=== PATIENT | female | born 1990 | race Asian ===

== ENCOUNTER 2019-03-24 14:20 | Inpatient (IN) | payer MEDICAID ==
[~2019-03-24] VITALS: Ht 165.1 cm; Wt 58.1 kg
[2019-03-24 14:33] VITALS: BP 95/59
--- NOTE | 2019-03-24 14:39 | NUR ---
Patient ambulated to bed 3 with family. RN evaluating patient at bedside.
--- NOTE | 2019-03-24 14:50 | NUR ---
PATIENT BIB SIGNIFICANT OTHER, AMBULATORY, C/O LOWER ABDOMINAL PAIN THAT RADIATES TO THE RIGHT FLANK AND LOWER BACK SINCE YESTERDAY, C/O 7/10 PAIN. PATIENT REPORTED N/V X4, NO DIARRHEA. PATIENT NO MEDICATION AND NO MEDICAL HX. RR EVEN AND UNLABORED, BED IN LOWEST POSITION, ED MD DR. SALDANA MADE AWARE, WILL CONTINUE TO MONITOR CLOSELY.
--- NOTE | 2019-03-24 15:45 | NUR ---
PATIENT PICKED UP BY TECH FOR CT AT THIS TIME
[2019-03-24 15:51] LABS: APPEARANCE,URINE SL CLOUDY (CLEAR); BILIRUBIN,URINE NEGATIVE (NEGATIVE); BLOOD, URINE 3+ (NEGATIVE); COLOR,URINE YELLOW (YELLOW); LEUKOCYTE ESTERASE ,URINE 3+ (NEGATIVE); NITRITE, URINE POSITIVE (NEGATIVE); UGLUCOSE NEGATIVE (NEGATIVE)
[2019-03-24 15:52] LABS: BASOPHILS % (AUTO) 0.3 % (0.0-2.0); EOSINOPHILS # (AUTO) 0.1 K/uL (0-0.4); EOSINOPHILS % (AUTO) 0.9 % (0.0-4.0); HEMATOCRIT 40.6 % (36-48); HEMOGLOBIN 13.4 g/dL (12.0-16.0); LYMPHOCYTES # (AUTO) 1.3 K/uL (2.5-16.5); LYMPHOCYTES % (AUTO) 9.6 % (20.5-51.1); MEAN CORPUSCULAR HEMOGLOBIN 30 pg (27-31); MEAN CORPUSCULAR HGB CONC 33 g/dL (33-37); MEAN CORPUSCULAR VOLUME 91.8 fL (80-94); MONOCYTES # (AUTO) 0.9 K/uL (0.8-1.0); MONOCYTES % (AUTO) 6.1 % (1.7-9.3); NEUTROPHILS # (AUTO) 11.7 K/uL (1.8-7.7); NEUTROPHILS % (AUTO) 83.1 % (42.2-75.2); PLATELET COUNT (AUTO) 247 K/uL (140-450); RED BLOOD CELL COUNT(AUTO) 4.43 MIL/uL (4.20-5.40); WHITE BLOOD COUNT (AUTO) 14.1 K/uL (4.8-10.8)
--- NOTE | 2019-03-24 15:53 | NUR ---
PATIENT RETURNED FROM CT
[2019-03-24 16:07] LABS: RBC,URINE TOO NUMEROUS TO COUN /HPF (0-5); WBC,URINE TOO MANY TO COUNT /HPF (0-5)
[2019-03-24 16:10] LABS: ANION GAP 13.3 (8-16); CARBON DIOXIDE 25.2 mmol/L (21-32); CREATININE 0.7 mg/dL (0.6-1.3); POTASSIUM 3.5 mmol/L (3.5-5.1)
[2019-03-24 16:12] LABS: ALBUMIN 3.9 g/dL (3.4-5.0); TOTAL BILIRUBIN 0.5 mg/dL (0.0-1.0)
[2019-03-24] MEDS ORDERED: KETOROLAC 30 MG/ML VIAL IVP ONE (16:35)
[2019-03-24] MEDS ORDERED: cefTRIAXone 2,000 MG in DEXTROSE 5% 100 ML IV ONE (16:35)
[2019-03-24] MEDS ORDERED: cefTRIAXone 2,000 MG VIAL ONE (16:52)
--- NOTE | 2019-03-24 18:10 | NUR ---
PATIENT TRANSPORTED TO [facility] UN[facility] VIA WHEELCHAIR IN ROOM 105B, PATIENT AMBULATED FROM WHEELCHAIR TO BED IN STABLE CONDITION, VSS IN NO ACUTE RESPIRATORY DISTRESS. BEDSIDE REPORT GIVEN TO VENU ROBB.
--- NOTE | 2019-03-24 18:17 | NUR ---
Admitted from ER , with chief complaint of BACK PAIN , 28 y/o ,Female, AAOX4, NO S/S OF ACUTE DISTRESS. PT DENIES PAIN. IV SITE PATENT AND INTACT. PT ,oriented to call light, bed, phone,television, bathroom, smoking policy, visiting hours, procedures, ID bracelet on. Belongings list checked.CALL LIGHT WITHIN REACH. SAFETY MEASURES ENSURED. WILL CONTINUE TO MONITOR.
[2019-03-24] MEDS ORDERED: NACL 0.9% 1,000 ML IV SCH (18:24)
[2019-03-24] MEDS ORDERED: HYDROcodone/APAP 5/325 MG 1 TAB TAB PO PRN (18:25)
[2019-03-24] MEDS ORDERED: ACETAMINOPHEN 325 MG TAB PO PRN (18:25)
[2019-03-24] MEDS ORDERED: MORPHINE SULFATE 2 MG/ML SYR IVP PRN (18:25)
[2019-03-24] MEDS ORDERED: ONDANSETRON 4 MG/2 ML VIAL IM/IVP PRN (18:25)
[2019-03-24 18:27] VITALS: BP 128/78
[2019-03-24 19:10] LABS: BARBITURATE, URINE NEG. ng/ml (NEG <=200); BENZODIAZEPINE, URINE NEG. ng/mL (NEG <=200); CANNABINOID, URINE NEG. ng/mL (NEG <=50); COCAINE, URINE NEG. ng/mL (NEG <=300); OPIATE, URINE NEG. ng/mL (NEG <=2000); PHENCYCLIDINE SCREEN,URINE NEG. ng/mL (NEG <=25)
[2019-03-24 19:10] LABS: PROTHROMBIN TIME 9.8 secs (10.8-13.4)
[2019-03-24 19:20] LABS: MAGNESIUM 1.9 mg/dL (1.8-2.4); THYROID STIMULATING HORMONE 0.67 uIU/mL (0.34-3.74)
--- NOTE | 2019-03-24 19:20 | NUR ---
PATIENT STATES SHE WANTS TO LEAVE AM. AT BEDSIDE. RISKS EXPLAINED. PT VERBALIZED UNDERSTANDING STATING SHE WOULD GET TREATMENT IN [place]. IV TAKEN OUT TIP INTACT. PT AMBULATED TO LOBBY. PRESCRIPTION PROVIDED.
[2019-03-24] MEDS ORDERED: SULF-58 PO (21:40)
== END 2019-03-24 19:15 | disposition left against medical advice (07) | DRG 463 ==
LOC: MED 14:20 → MTU 17:44
PROVIDERS: ADMIT Family Medicine; ATTEND Family Medicine
DX: N12 Tubulo-interstitial nephritis, not specified as acute or chronic (principal); Z53.21 Procedure and treatment not carried out due to patient leaving prior to being seen by health care provider
CPT/HCPCS: 36415; 80053; 80305; 81001; 81025; 83735; 84100; 84443; 85025; 85610; 85730; 87086; 87186; 96365; 96375; 99285; J0696; J1885

== ENCOUNTER 2019-06-25 23:27 | Emergency (ER) | payer SELFPAY ==
[~2019-06-25 23:27] MED LIST: SULF-58 PO
--- NOTE | 2019-06-25 23:41 | NUR ---
PT CALLED FROM LOBBY; NO RESPONSE. CALLED OUTSIDE; NO RESPONSE.
--- NOTE | 2019-06-25 23:59 | NUR ---
CALLED FROM LOBBY; NO RESPONSE.
--- NOTE | 2019-06-26 00:18 | NUR ---
CALLED FROM LOBBY. NO RESPONSE. LEFT WITHOUT BEING TRIAGED.
== END 2019-06-25 23:41 | disposition left against medical advice (07) ==
LOC: MED 23:27
DX: R50.9 Fever, unspecified (principal); Z53.21 Procedure and treatment not carried out due to patient leaving prior to being seen by health care provider

== ENCOUNTER 2019-06-26 18:03 | Emergency (ER) | payer OTHER ==
[~2019-06-26] VITALS: Ht 160 cm; Wt 62.6 kg
--- NOTE | 2019-06-26 18:17 | NUR ---
PT AMBULATED TO ER BED 05
[2019-06-26 18:18] VITALS: BP 130/66
--- NOTE | 2019-06-26 18:31 | NUR ---
PT C/O FEVER WITH THROBBING TEMPORAL DENTON, CHILLS, AND SWEATINGS FOR 2 DAYS. PT ALSO HAS WATERY DIARRHEA X1 AND NAUSEA TODAY. DENIES COUGH OR VOMITING. PATIENT STATES PAIN OF 7/10 AT THIS TIME; VSS; PATIENT POSITIONED FOR COMFORT; HOB ELEVATED; BEDRAILS UP X1; BED DOWN. ER MD MADE AWARE OF PT STATUS.
[2019-06-26] MEDS ORDERED: ACETAMINOPHEN 325 MG TAB PO ONE (18:35)
--- NOTE | 2019-06-26 19:09 | NUR ---
ICE PACK PROVIDED TO PT.
--- NOTE | 2019-06-26 19:13 | NUR ---
Pt report given to VENU Hope. Transfer of care at this time.
[2019-06-26] MEDS ORDERED: NACL 0.9% 1,000 ML IV ONE (20:00)
[2019-06-26] MEDS ORDERED: cefTRIAXone 1,000 MG VIAL ONE (20:05)
[2019-06-26 20:55] VITALS: BP 128/64
--- NOTE | 2019-06-26 20:55 | NUR ---
PT DISCHARGED WITH PAPERWORK. RX KEFLEX. EDUCATED PT REGARDING MEDICATION AND S/E. EDUCATED PT REGARDING D/C DIAGNOSIS AND INSTRUCTIONS. PT VERBALIZED UNDERSTANDING OF TEACHING. TOLD PT TO FOLLOW UP WITH PCP AND WHEN TO RETURN TO ED. PT VSS. TEMPERATURE 99.0 ORAL. ALL QUESTIONS ANSWERED.
== END 2019-06-26 20:55 | disposition home or self-care (01) ==
LOC: MED 18:03
DX: N39.0 Urinary tract infection, site not specified (principal); Z79.2 Long term (current) use of antibiotics
CPT/HCPCS: 81002; 81025; 87804; 96365; 99283; J0696; J7030

== ENCOUNTER 2019-06-27 15:41 | Inpatient (IN) | payer OTHER ==
[~2019-06-27] VITALS: Ht 160 cm; Wt 63.5 kg
[2019-06-27 15:54] VITALS: BP 108/74
--- NOTE | 2019-06-27 16:03 | NUR ---
NOTIFIED DR. ZELAYA PT HAS SUSPECTED SEPSIS. ASSISTED PT TO WAIT IN THE LOBBY DUE TO UNAVAILABLE BED AT THIS TIME.
--- NOTE | 2019-06-27 16:16 | NUR ---
PT TAKEN TO BED 8.
[2019-06-27] MEDS ORDERED: ACETAMINOPHEN 325 MG TAB PO ONE (16:20)
[2019-06-27] MEDS ORDERED: IBUPROFEN 600 MG TAB PO ONE (16:20)
--- NOTE | 2019-06-27 16:26 | NUR ---
28/F C/O FEVER, CHILLS, DENTON, DIZZINESS, FATIGUE/WEAKNESS, LOSS OF APPETITE FOR 3 DAYS. DIARRHEA X1 YESTERDAY. DENIES N/V. PT WAS RELEASED FROM ER HERE LAST NIGHT, DX OF UTI AND RX OF KEFLEX. TOOK TYLENOL IN THE MORNING BUT FEVER CAME BACK. INITIATED COOLING MEASURES. AOX4, GCS15. PT APPEARS FATIGUED. PHM: DENIES
[2019-06-27] MEDS ORDERED: NACL 0.9% 2,000 ML IV SCH (16:34)
[2019-06-27] MEDS ORDERED: DEXAMETHASONE 10 MG/ML VIAL IVP ONE (16:35)
[2019-06-27] MEDS ORDERED: CLINDAMYCIN 900 MG in DEXTROSE 5% 100 ML IV ONE (16:35)
[2019-06-27] MEDS ORDERED: LORazepam 2 MG/ML VIAL IVP ONE (16:35)
[2019-06-27] MEDS ORDERED: LEVOFLOXACIN 500 MG/D5W PREMIX 100 ML IV ONE (16:35)
--- NOTE | 2019-06-27 16:46 | NUR ---
XRAY AT BEDSIDE
--- NOTE | 2019-06-27 16:53 | NUR ---
+LEFT CVA TENDERNESS
--- NOTE | 2019-06-27 16:55 | NUR ---
INDUSTRIAL HYGENIST AT BEDSIDE.
[2019-06-27] MEDS ORDERED: CLINDAMYCIN 900 MG/6 ML VIAL IV ONE (17:17)
[2019-06-27 17:23] LABS: BASOPHILS # (AUTO) 0.1 K/uL (0.00-0.22); BASOPHILS % (AUTO) 0.3 % (0.0-2.0); HEMATOCRIT 37.1 % (36-48); HEMOGLOBIN 12.3 g/dL (12.0-16.0); LYMPHOCYTES % (AUTO) 5.7 % (20.5-51.1); MEAN CORPUSCULAR HEMOGLOBIN 30 pg (27-31); MEAN CORPUSCULAR HGB CONC 33 g/dL (33-37); MEAN CORPUSCULAR VOLUME 91.3 fL (80-94); MONOCYTES # (AUTO) 1.7 K/uL (0.8-1.0); MONOCYTES % (AUTO) 10.2 % (1.7-9.3); NEUTROPHILS # (AUTO) 14.1 K/uL (1.8-7.7); NEUTROPHILS % (AUTO) 83.8 % (42.2-75.2); PLATELET COUNT (AUTO) 205 K/uL (140-450); RED BLOOD CELL COUNT(AUTO) 4.06 MIL/uL (4.20-5.40); RED CELL DISTRIBUTION WIDTH 12.9 % (11.6-13.7); WHITE BLOOD COUNT (AUTO) 16.9 K/uL (4.8-10.8)
[2019-06-27 17:49] LABS: ALBUMIN 3.1 g/dL (3.4-5.0); ANION GAP 19.4 (8-16); CARBON DIOXIDE 17.8 mmol/L (21-32); CREATININE 0.8 mg/dL (0.6-1.3); POTASSIUM 3.2 mmol/L (3.5-5.1); TOTAL BILIRUBIN 0.4 mg/dL (0.0-1.0)
[2019-06-27 18:06] LABS: APPEARANCE,URINE CLEAR (CLEAR); BILIRUBIN,URINE 1+ (NEGATIVE); BLOOD, URINE 3+ (NEGATIVE); COLOR,URINE YELLOW (YELLOW); LEUKOCYTE ESTERASE ,URINE TRACE (NEGATIVE); NITRITE, URINE NEGATIVE (NEGATIVE); UGLUCOSE NEGATIVE (NEGATIVE)
[2019-06-27 18:28] LABS: RBC,URINE 80-100 /HPF (0-5); WBC,URINE 0-5 /HPF (0-5)
--- NOTE | 2019-06-27 18:39 | NUR ---
PT TAKEN FOR CT SCAN.
--- NOTE | 2019-06-27 19:14 | NUR ---
REPORT GIVEN TO VENU BURNETTE. TRANSFER OF CARE AT THIS TIME.
[2019-06-27] MEDS ORDERED: ONDANSETRON 4 MG/2 ML VIAL IM/IVP PRN (19:15)
[2019-06-27] MEDS ORDERED: DOCUSATE SODIUM 100 MG GELCAP PO PRN (19:15)
[2019-06-27] MEDS ORDERED: ACETAMINOPHEN 325 MG TAB PO PRN (19:15)
[2019-06-27] MEDS ORDERED: HYDROcodone/APAP 5/325 MG 1 TAB TAB PO PRN (19:15)
[2019-06-27] MEDS ORDERED: NACL 0.9% 1,000 ML IV ONE (19:15)
[2019-06-27] MEDS ORDERED: KETOROLAC 15 MG/ML VIAL IVP PRN (19:15)
[2019-06-27] MEDS ORDERED: APAP/BUTAL/CAFF 325/50/40 MG 1 TAB PO PRN (19:25)
--- NOTE | 2019-06-27 19:25 | NUR ---
Patient will be admitted to care of DR. HYDE. Admited to MS Will go to room 119 A Belongings list completed. Report to EMILIO LEA.
[2019-06-27 20:00] VITALS: BP 95/58
[2019-06-27] MEDS: NACL 0.9% 1,000 ML IV SCH (20:00)
--- NOTE | 2019-06-27 20:00 | NUR ---
RECEIVED PT FROM ER NURSE, YOMAIRA. PT CAME IN [facility] AND AMBULATED TO [facility] BED. NO SOB NOTED ON ROOM AIR. SKIN INTACT, WARM AND DRY TO TOUCH. IV SITE ON RAC 20G, PATENT, INTACT AND ASYMPTOMATIC. VITAL SIGN CHECKED, WITHIN PT'S BASELINE, MRSA NARES SWAB DONE. DX: SEPSIS, UTI. BOARD UPDATED, ALL SAFETY MEASUREMENT MET. BED IN LOW POSITION, CALL LIGHT WITHIN REACH. WILL CONTINUE TO MONITOR.
[2019-06-27 20:16] LABS: BARBITURATE, URINE NEG. ng/ml (NEG <=200); BENZODIAZEPINE, URINE NEG. ng/mL (NEG <=200); CANNABINOID, URINE NEG. ng/mL (NEG <=50); COCAINE, URINE NEG. ng/mL (NEG <=300); OPIATE, URINE NEG. ng/mL (NEG <=2000); PHENCYCLIDINE SCREEN,URINE NEG. ng/mL (NEG <=25)
[2019-06-27 20:34] LABS: MAGNESIUM 1.9 mg/dL (1.8-2.4); PHOSPHORUS 1.8 mg/dL (2.5-4.9); THYROID STIMULATING HORMONE 0.94 uIU/mL (0.34-3.74)
[2019-06-27] MEDS ORDERED: cefTRIAXone 2,000 MG VIAL ONE (20:40)
[2019-06-27 20:46] LABS: PROTHROMBIN TIME 10.7 secs (10.8-13.4)
[2019-06-27] MEDS ORDERED: KCL 20 MEQ/WATER INJ PREMIX 200 ML IV ONE (21:00)
[2019-06-27] MEDS: cefTRIAXone 2,000 MG in DEXTROSE 5% 100 ML IV SCH (21:01)
--- NOTE | 2019-06-27 21:01 | NUR ---
GIVEN ROCEPHIN MD ORDERED. PT TOLERATED WELL.
[2019-06-27] MEDS ORDERED: SODIUM PHOSPHATE 15 MMOLE in NACL 0.9% 250 ML IV ONE (22:00)
--- NOTE | 2019-06-27 22:42 | NUR ---
GIVEN Raphael DIEGO, 1ST BAG MD PRESTON. PT TOLERATED WELL. Addendum: 06/28/19 at 0652 by Sarthak Murrell RN TALKED TO DR. SEPULVEDA ABOUT UNAVAILABLE SODIUM PHOSPHATE [address] SEPULVEDA SAID PHARMACY IS COMING, OTHERWISE, WE WILL POSTPONE IT TO MORNING WHEN PHARMACY OPEN.
[2019-06-28] MEDS: NACL 0.9% 1,000 ML IV SCH ×3 (00:24→22:42)
--- NOTE | 2019-06-28 00:40 | NUR ---
1ST BAG OF K BRANDIE DONE. GIVEN 2ND BAG OF K BRANDIE MD ORDERED. PT TOLERATED WELL.
--- NOTE | 2019-06-28 02:55 | NUR ---
PT C/O DIARRHEA, REPORTED DR. SEPULVEDA AND RECEIVED ORDER OF C.DIFF STOOL COLLECT ORDER.
--- NOTE | 2019-06-28 04:00 | NUR ---
NO PHARMACY SHOWED UP. REPORTED TO DR. SEPULVEDA AND IT WILL BE ENDORSED TO DAY SHIFT NURSE DR. SEPULVEDA ORDERED.
--- NOTE | 2019-06-28 05:29 | NUR ---
PT SLEEPING IN BED. NO ACUTE DISTRESS NOTED.
[2019-06-28 06:34] LABS: BASOPHILS % (AUTO) 0.1 % (0.0-2.0); HEMOGLOBIN 12.3 g/dL (12.0-16.0); LYMPHOCYTES # (AUTO) 0.6 K/uL (2.5-16.5); LYMPHOCYTES % (AUTO) 6.8 % (20.5-51.1); MEAN CORPUSCULAR HEMOGLOBIN 31 pg (27-31); MEAN CORPUSCULAR HGB CONC 33 g/dL (33-37); MEAN CORPUSCULAR VOLUME 92.8 fL (80-94); MONOCYTES # (AUTO) 0.4 K/uL (0.8-1.0); MONOCYTES % (AUTO) 4.3 % (1.7-9.3); NEUTROPHILS # (AUTO) 8.4 K/uL (1.8-7.7); NEUTROPHILS % (AUTO) 88.8 % (42.2-75.2); PLATELET COUNT (AUTO) 192 K/uL (140-450); RED BLOOD CELL COUNT(AUTO) 3.98 MIL/uL (4.20-5.40); RED CELL DISTRIBUTION WIDTH 12.5 % (11.6-13.7); WHITE BLOOD COUNT (AUTO) 9.5 K/uL (4.8-10.8)
[2019-06-28 06:49] LABS: ANION GAP 17.3 (8-16); CARBON DIOXIDE 17.1 mmol/L (21-32); CREATININE 0.6 mg/dL (0.6-1.3); POTASSIUM 4.4 mmol/L (3.5-5.1)
--- NOTE | 2019-06-28 06:49 | NUR ---
PT SLEEPING IN BED. NO ACUTE DISTRESS NOTED.
[2019-06-28 06:56] LABS: CHOL/HDL RATIO 3.4 (1-4.5)
[2019-06-28 06:58] LABS: MAGNESIUM 1.9 mg/dL (1.8-2.4)
--- NOTE | 2019-06-28 07:15 | NUR ---
RECEIVED REPORT FROM GUM ROLLING MACHINE OPERATOR NURSE EMILIO FOR CONTINUITY OF CARE. PT IN STABLE CONDITION. RESPIRATIONS EVEN AND UNLABORED, ROOM AIR. IV INTACT AND PATENT. SAFETY MEASURES IN PLACE. BED IN LOW POSITION. CALL LIGHT AT BED SIDE. WILL CONTINUE TO MONITOR.
[2019-06-28 08:00] VITALS: BP 134/59
--- NOTE | 2019-06-28 08:36 | NUR ---
PATIENT HAS BEEN SCREENED AND CATEGORIZED HIGH NUTRITION RISK. PATIENT WILL BE SEEN WITHIN 1-2 DAYS OF ADMISSION. 06/28/19-06/29/[address]
[2019-06-28] MEDS: LACTOBACILLUS RHAMNOSUS GG 1 EACH CAP PO SCH (08:44)
--- NOTE | 2019-06-28 08:45 | NUR ---
GAVE ORDERED DUE MEDICATIONS AT THIS TIME. PT TOLERATED WELL. BED IN LOW POSITION. CALL LIGHT AT BEDSIDE. WILL CONTINUE TO MONITOR.
[2019-06-28] MEDS ORDERED: SODIUM PHOSPHATE 15 MMOLE in NACL 0.9% 250 ML IV SCH (09:00)
--- NOTE | 2019-06-28 11:45 | NUR ---
UNHOOKED AND HOOKED IV FOR RESTROOM BREAK. PT IN STABLE CONDITION.
--- NOTE | 2019-06-28 13:33 | NUR ---
UNHOOKED AND HOOKED IV FOR RESTROOM BREAK. PT IN STABLE CONDITION.
--- NOTE | 2019-06-28 14:22 | NUR ---
06/28/19 RD INITIAL ASSESSMENT COMPLETED PLEASE REFER TO NUTRITION ASSESSMENT UNDER CARE ACTIVITY FOR ESTIMATED NUTRITIONAL NEEDS. 1. CONTINUE REGULAR DIET TOLERATED 2. ENCOURAGE INCREASING PO INTAKE 3. RD TO FOLLOW-UP 3-5 DAYS, MODERATE RISK RANDEE DE LOS SANT[address] RD
--- NOTE | 2019-06-28 15:14 | NUR ---
PT LYING IN BED WATCHING TV IN STABLE CONDITION. BED IN LOW POSITION. CALL LIGHT AT BEDSIDE. WILL CONTINUE TO MONITOR.
[2019-06-28 16:00] VITALS: BP 100/65
--- NOTE | 2019-06-28 16:01 | NUR ---
UNHOOKED AND HOOKED IV FOR RESTROOM BREAK. PT IN STABLE CONDITION.
--- NOTE | 2019-06-28 18:29 | NUR ---
PT LYING IN BED WATCHING TV ON HER PHONE. PT IN STABLE CONDITION. BED IN LOW POSITION. CALL LIGHT AT BEDSIDE. WILL CONTINUE TO MONITOR.
--- NOTE | 2019-06-28 19:25 | NUR ---
GAVE REPORT TO EXTRUSION PRESS OPERATOR NURSE KISSDEISY FOR CONTINUITY OF CARE. PT IN STABLE CONDITION.
--- NOTE | 2019-06-28 19:26 | NUR ---
RECEIVED BEDSIDE REPORT FROM DAY SHIFT NURSE. PATIENT IS AWAKE, ALERT, AND COOPERATIVE. RESPIRATION EVEN UNLABORED ON ROOM AIR. NO DISTRESS NOTED. SKIN IS WARM AND DRY. IV PATENT AND INTACT. DENIES PAIN. PLAN OF CARE WAS DISCUSSED. ALL SAFETY MEASURES IN PLACE. BED IS AT LOW POSITION. CALL LIGHT WITHIN REACH AND VERBALIZES ITS USE. WILL CONTINUE TO MONITOR.
[2019-06-28] MEDS: cefTRIAXone 2,000 MG in DEXTROSE 5% 100 ML IV SCH (19:48)
--- NOTE | 2019-06-28 20:00 | NUR ---
INITIAL ASSESSMENT DONE. VITALS WERE TAKEN. IV ANTIBIOTIC ADMINISTERED PER ORDER. WILL CONTINUE TO MONITOR.
--- NOTE | 2019-06-28 21:13 | NUR ---
PATIENT IN BED RESPIRATION EVEN UNLABORED ON ROOM AIR. FRIENDS AT BEDSIDE. WILL CONTINUE TO MONITOR
--- NOTE | 2019-06-28 22:10 | NUR ---
CHECKED PATIENT. PATIENT IN STABLE CONDITION. FRIENDS AT BEDSIDE. WILL CONTINUE TO MONITOR
[2019-06-29] VITALS: BP 99/47
--- NOTE | 2019-06-29 00:10 | NUR ---
VITALS WERE TAKEN. PATIENT IN STABLE CONDITION. WILL CONTINUE TO MONITOR.
--- NOTE | 2019-06-29 02:43 | NUR ---
CHECKED PATIENT. PATIENT SLEEPING RESPIRATION EVEN UNLABORED ON ROOM AIR. NO DISTRESS NOTED. WILL CONTINUE TO MONITOR.
--- NOTE | 2019-06-29 04:24 | NUR ---
CHECKED PATIENT. PATIENT SLEEPING RESPIRATION EVEN UNLABORED ON ROOM AIR. NO DISTRESS NOTED. WILL CONTINUE TO MONITOR.
[2019-06-29 06:15] LABS: CREATININE 0.5 mg/dL (0.6-1.3)
[2019-06-29 06:21] LABS: BASOPHILS % (AUTO) 0.1 % (0.0-2.0); HEMATOCRIT 35.7 % (36-48); HEMOGLOBIN 11.9 g/dL (12.0-16.0); LYMPHOCYTES # (AUTO) 1.5 K/uL (2.5-16.5); LYMPHOCYTES % (AUTO) 7.9 % (20.5-51.1); MEAN CORPUSCULAR HEMOGLOBIN 30 pg (27-31); MEAN CORPUSCULAR HGB CONC 33 g/dL (33-37); MEAN CORPUSCULAR VOLUME 91.1 fL (80-94); MONOCYTES # (AUTO) 0.8 K/uL (0.8-1.0); NEUTROPHILS # (AUTO) 17.3 K/uL (1.8-7.7); PLATELET COUNT (AUTO) 285 K/uL (140-450); RED BLOOD CELL COUNT(AUTO) 3.92 MIL/uL (4.20-5.40); RED CELL DISTRIBUTION WIDTH 13.1 % (11.6-13.7)
[2019-06-29 06:32] LABS: ANION GAP 15.4 (8-16); CARBON DIOXIDE 19.6 mmol/L (21-32); MAGNESIUM 1.8 mg/dL (1.8-2.4); PHOSPHORUS 2.1 mg/dL (2.5-4.9)
[2019-06-29 06:55] LABS: WHITE BLOOD COUNT (AUTO) 19.7 K/uL (4.8-10.8)
--- NOTE | 2019-06-29 07:20 | NUR ---
RECEIVED BEDSIDE REPORT FROM DATA CODER OPERATOR NURSE. PT IS ASLEEP, NO S/S OF ACUTE DISTRESS. PT ON ROOM AIR, SKIN INTACT. IV SITE IN THE R AC 20 G INFUSING NS 100 ML/HR. CALL LIGHT IS WITHIN REACH. PT IS AMBULATORY AND ABLE TO MAKE NEEDS KNOWN. WILL CONTINUE TO MONITOR.
--- NOTE | 2019-06-29 07:22 | NUR ---
ENDORSED PATIENT TO DAY SHIFT NURSE. PATIENT IN STABLE CONDITION.
[2019-06-29] MEDS ORDERED: metroNIDAZOLE 500 MG/NS PREMIX 100 ML IV SCH (07:39)
[2019-06-29 08:00] VITALS: BP 101/50
[2019-06-29] MEDS: LACTOBACILLUS RHAMNOSUS GG 1 EACH CAP PO SCH (09:19)
--- NOTE | 2019-06-29 09:29 | NUR ---
AM MEDS ADMINISTERED, NEW NS TATI MCFADDEN PT TOLERATED WELL.
--- NOTE | 2019-06-29 10:00 | NUR ---
GOT A CALL FROM VENU MART, FROM [facility], SHE GAVE HER OFFICE PHONE NUMBER TO BE GIVEN TO THE PT IN CASE PT NEEDS TO TALK TO HER. [phone]. I LET THE PT KNOW.
--- NOTE | 2019-06-29 11:19 | NUR ---
PT IS RESTING COMFORTABLY IN BED, NO S/S OF DISTRESS NOTED AT THIS TIME, WILL CONTINUE MONITORING.
[2019-06-29] MEDS: NACL 0.9% 1,000 ML IV SCH ×2 (12:01→21:56)
[2019-06-29] MEDS: metroNIDAZOLE 500 MG/NS PREMIX 100 ML IV SCH ×2 (12:24→20:54)
--- NOTE | 2019-06-29 12:54 | NUR ---
PATIENT SITING IN BED, NO DISTRESS NOTED.
--- NOTE | 2019-06-29 13:38 | NUR ---
PT SEEN BY DR LU
[2019-06-29] MEDS ORDERED: SODIUM PHOS / POTASSIUM PHOS 1 PKT PDR PO SCH (14:05)
[2019-06-29] MEDS ORDERED: PANTOPRAZOLE 40 MG TABEC PO SCH (14:30)
--- NOTE | 2019-06-29 15:26 | NUR ---
DISCHARGE PLANNING 28 y/o female pt who presented to the ED with complains of fever and body aches for 3 days. Pt dx with sepsis secondary to left pyelonephritis and cephalgia. Pt currently on IV rocephin 2mg Q24hrs; urine cultures pending. Dc plan to home once medically clear. Pt has medical coverage as a student of [employer]. [employer] contacted and faxed over a referral form that needs to be mailed with claim to [address] [place] [address]. Glenda Jacobs, [facility] Ext [phone]
[2019-06-29 16:00] VITALS: BP 99/52
[2019-06-29] MEDS: cefTRIAXone 2,000 MG in DEXTROSE 5% 100 ML IV SCH (18:53)
--- NOTE | 2019-06-29 19:15 | NUR ---
RECEIVED BEDSIDE REPORT FROM DAY SHIFT NURSE. PATIENT IS AWAKE, ALERT, AND COOPERATIVE. RESPIRATION EVEN UNLABORED ON ROOM AIR. NO DISTRESS NOTED. SKIN IS WARM AND DRY. IV PATENT AND INTACT. DENIES PAIN. FRIENDS AT BEDSIDE. PLAN OF CARE WAS DISCUSSED. ALL SAFETY MEASURES IN PLACE. BED IS AT LOW POSITION. CALL LIGHT WITHIN REACH AND VERBALIZES ITS USE. WILL CONTINUE TO MONITOR.
--- NOTE | 2019-06-29 19:25 | NUR ---
ENDORSED PT TO CHIEF TRANSFER AND PUMPHOUSE OPERATOR IN STABLE CONDITION.
--- NOTE | 2019-06-29 20:00 | NUR ---
INITIAL ASSESSMENT DONE. VITALS WERE TAKEN. DENIES PAIN. PATIENT IN STABLE CONDITION. WILL CONTINUE TO MONITOR.
[2019-06-29] MEDS: SODIUM PHOS / POTASSIUM PHOS 1 PKT PDR PO SCH (20:54)
--- NOTE | 2019-06-29 21:10 | NUR ---
ALL SCHEDULED MEDS WERE GIVEN PER ORDER. NO ASE NOTED. WILL CONTINUE TO MONITOR.
--- NOTE | 2019-06-29 22:45 | NUR ---
PATIENT IN BED WATCHING TV RESPIRATION EVEN UNLABORED ON ROOM LORRIE. NO DISTRESS NOTED. WILL CONTINUE TO MONITOR.
[2019-06-30] VITALS: BP 100/67
--- NOTE | 2019-06-30 00:13 | NUR ---
VITALS WERE TAKEN. PATIENT IN STABLE CONDITION. NO DISTRESS NOTED. WILL CONTINUE TO MONITOR.
--- NOTE | 2019-06-30 02:33 | NUR ---
CHECKED PATIENT. PATIENT SLEEPING RESPIRATION EVEN UNLABORED ON ROOM AIR. NO DISTRESS NOTED. WILL CONTINUE TO MONITOR.
[2019-06-30] MEDS: metroNIDAZOLE 500 MG/NS PREMIX 100 ML IV SCH (04:38)
--- NOTE | 2019-06-30 04:38 | NUR ---
HANG BAG OF ANTIBIOTIC ZOSYN PER ORDER. WILL CONTINUE TO MONITOR.
--- NOTE | 2019-06-30 07:20 | NUR ---
ENDORSED PATIENT TO DAY SHIFT NURSE. PATIENT IN STABLE CONDITION.
--- NOTE | 2019-06-30 07:22 | NUR ---
RECEIVED BEDSIDE REPORT FROM MEDICAL SALES NURSE FOR CONTINUITY OF CARE. PATIENT IS RESTING ON BED AT THIS TIME. PATIENT IS AAOX4. RESPIRATION EVEN AND UNLABORED ON RA. NO SIGNS OF DISTRESS NOTED. IV PATENT AND INTACT, INFUSING PER MD ORDER. PATIENT IS CONTINENT AND AMBULATE WITH STEADY. SKIN INTACT AND CLEAN. DISCUSSED PLAN OF CARE WITH PATIENT AND PATIENT VERBALIZED OK. SAFETY MEASURES IN PLACE. BED IN LOW POSITION AND CALL LIGHT WITHIN REACH. INSTRUCTED PATIENT TO USE THE CALL LIGHT FOR ANY ASSISTANCE AND PATIENT WAS AWARE.
[2019-06-30 07:47] LABS: BASOPHILS % (AUTO) 0.1 % (0.0-2.0); EOSINOPHILS % (AUTO) 0.1 % (0.0-4.0); HEMATOCRIT 36.5 % (36-48); LYMPHOCYTES # (AUTO) 2.7 K/uL (2.5-16.5); LYMPHOCYTES % (AUTO) 21.9 % (20.5-51.1); MEAN CORPUSCULAR HEMOGLOBIN 30 pg (27-31); MEAN CORPUSCULAR HGB CONC 33 g/dL (33-37); MEAN CORPUSCULAR VOLUME 91.8 fL (80-94); MONOCYTES % (AUTO) 8.3 % (1.7-9.3); NEUTROPHILS # (AUTO) 8.6 K/uL (1.8-7.7); NEUTROPHILS % (AUTO) 69.6 % (42.2-75.2); PLATELET COUNT (AUTO) 307 K/uL (140-450); RED BLOOD CELL COUNT(AUTO) 3.97 MIL/uL (4.20-5.40); RED CELL DISTRIBUTION WIDTH 13.1 % (11.6-13.7); WHITE BLOOD COUNT (AUTO) 12.4 K/uL (4.8-10.8)
[2019-06-30 08:00] VITALS: BP 102/62
[2019-06-30] MEDS ORDERED: METR250T2 PO (08:51)
[2019-06-30] MEDS ORDERED: LEVO500T98 PO (08:51)
[2019-06-30] MEDS ORDERED: INUL1CTB PO (08:51)
[2019-06-30] MEDS: NACL 0.9% 1,000 ML IV SCH (09:17)
[2019-06-30] MEDS: LACTOBACILLUS RHAMNOSUS GG 1 EACH CAP PO SCH (09:17)
[2019-06-30] MEDS: SODIUM PHOS / POTASSIUM PHOS 1 PKT PDR PO SCH (09:17)
--- NOTE | 2019-06-30 09:17 | NUR ---
ADMINISTERED MEDS PER MD ORDER, MEDS EDUCATION PROVIDED TO PATIENT AND PATIENT VERBALIZED UNDERSTANDING. PATIENT AWAKE AND RESTING ON BED AT THIS TIME. INSTRUCTED PATIENT THAT STOOL SPECIMEN IS NEEDED AND PROVIDED HAT AND CUP FOR STOOL SPECIMEN COLLECTION, PATIENT VERBALIZED UNDERSTANDING. NO SIGNS OF DISTRESS NOTED. SAFETY MEASURES IN PLACE. BED IN LOW POSITION AND CALL LIGHT WITHIN REACH. INSTRUCTED PATIENT TO USE THE CALL LIGHT FOR ANY ASSISTANCE AND PATIENT WAS AWARE.
[2019-06-30 10:22] LABS: ANION GAP 16.7 (8-16); CARBON DIOXIDE 21.9 mmol/L (21-32); CREATININE 0.7 mg/dL (0.6-1.3); POTASSIUM 3.6 mmol/L (3.5-5.1)
[2019-06-30 10:30] LABS: MAGNESIUM 1.7 mg/dL (1.8-2.4); PHOSPHORUS 3.3 mg/dL (2.5-4.9)
--- NOTE | 2019-06-30 10:45 | NUR ---
PATIENT AWAKE AND TALKING TO VISITOR BY BEDSIDE. NO SIGNS OF DISTRESS NOTED. SAFETY MEASURES IN PLACE. BED IN LOW POSITION AND CALL LIGHT WITHIN REACH.
[2019-06-30] MEDS ORDERED: LACT1.4C PO (10:59)
[2019-06-30] MEDS ORDERED: MAGNESIUM OXIDE 400 MG TAB PO SCH (11:15)
--- NOTE | 2019-06-30 11:26 | NUR ---
ADMINISTERED MG PO PER MD ORDER, PATIENT TOLERATED WELL, MED EDUCATION PROVIDED TO PATIENT AND PATIENT VERBALIZED UNDERSTANDING. PATIENT IS AMBULATING AROUND THE ROD WAY WITH VISITOR WHITLEY ROSE. NO SIGNS OF DISTRESS NOTED.
--- NOTE | 2019-06-30 12:25 | NUR ---
PATIENT IS HAVING LUNCH ON BED AT THIS TIME. NO SIGNS OF DISTRESS NOTED. SAFETY MEASURES IN PLACE.
--- NOTE | 2019-06-30 12:50 | NUR ---
PATIENT IS CHANGING INTO HER OWN CLOTHES IN THE BATHROOM AT THIS TIME. WHITLEY ROSE IS BEDSIDE. NO SIGNS OF DISTRESS NOTED. SAFETY MEASURES IN PLACE.
--- NOTE | 2019-06-30 13:20 | NUR ---
DISCHARGE INSTRUCTION PROVIDED TO PATIENT AT BEDSIDE. EDUCATED PATIENT ON MD FOLLOW UP, SEEK MEDICAL HELP IN CASE OF MEDICAL EMERGENCY, MEDICATION REGIMEN AND SIDE EFFECTS, DISEASE MANAGEMENT. ANSWERED ALL PATIENT'S QUESTIONS AND PATIENT VERBALIZED UNDERSTANDING. PATIENT CHECKED ALL CABINETS AND TOOK ALL HER BELONGINGS WITH HER. DC IV AND CANNULA INTACT AND NO BLEEDING ON IV SITE. REMOVED ALL ARM BANDS. PROVIDED PRINTED DISCHARGE DOCUMENT. PATIENT REFUSED FLU VACCINE AND SAID " I WILL GET IT FROM THE [facility]." PATIENT WAS AWARE THAT HER PRESCRIPTION WAS SEND TO HER PREFERRED PHARMACY [facility] [employer]. ESCORTED PATIENT TO THE FRONT LOBBY. PATIENT IS GOING TO DISCHARGE AT THIS TIME ACCOMPANIED BY PATIENT'S WHITLEY ROSE. PATIENT IS IN STABLE CONDITION.
== END 2019-06-30 13:20 | disposition home or self-care (01) | DRG 872 ==
LOC: MED 15:41 → MTU 19:25
PROVIDERS: ADMIT General Practice; ATTEND General Practice
DX: A41.9 Sepsis, unspecified organism (principal); N12 Tubulo-interstitial nephritis, not specified as acute or chronic; E44.0 Moderate protein-calorie malnutrition; E87.1 Hypo-osmolality and hyponatremia; Z68.24 Body mass index [BMI] 24.0-24.9, adult; E86.0 Dehydration; E86.1 Hypovolemia; E87.6 Hypokalemia; R51 Headache; R31.9 Hematuria, unspecified; E87.8 Other disorders of electrolyte and fluid balance, not elsewhere classified; E83.39 Other disorders of phosphorus metabolism; E83.42 Hypomagnesemia
CPT/HCPCS: 36415; 36600; 70450; 71045; 74018; 80048; 80053; 80305; 81001; 81025; 82150; 82803; 83036; 83605; 83690; 83735; 83880; 84100; 84443; 84484; 85025; 85610; 85730; 87040; 87081; 87086; 93005; 96365; 96367; 96375; 99285; J0696; J1100; J1956; J2060; J3480; J3490; J7030; J7060; Q0092